=== PATIENT | female | born 1955 | race Caucasian/White ===

== ENCOUNTER 2024-11-21 10:02 | Outpatient (AMB) | payer MEDICARE, SELFPAY ==
--- NOTE | 2024-11-21 10:08 | MHC.OFFVIS ---
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 Denies any recent trauma, injury or falls. Back pain has been long standing issues for her which she attributes to disc generation, severe osteoarthritis, weight gain and age. She has been under the care of Dr. Smith at [facility] who recently relocated further away. She was receiving multiple injections since 2019. Patient is here today to establish pain management care with our office and discuss interventions for axial low back pain and spinal stenosis related pain. She was [place]. Ari[place] [facility] spine MRI in July and was deemed non-surgical at that time and was recommended to trial an injection. Patient is currently in formal physical therapy and regular home exercise program with partial improvement and increased pain with movements or exercises. Back pain is axial and also radiates into bilateral lower extremities posteriorly and into her feet. She has intermittent radicular pain episodes into her lateral hip and anterior thigh. She completed L5-S1 SAE on 12/22/23 with 70% pain relief, 50% pain relief for 3 months with previous SAE injections and lumbar facet MBBs on 04/05/24 which results in 90% pain relief for 6 hours. She is interested to repeat diagnostic lumbar medial branch blocks for potential RFA procedure and undergo Caudal SAE injection for lumbar spinal stenosis related pain. Denies any fever or chills, abdominal or groin pain, bladder or bowel dysfunction or saddle anesthesia. Location: Lower back radiates down bilateral legs in L5-S1 Duration: Chronic pain for many years, most significant past 4 years Characteristics of symptom or complaint: Stabbing, tingling, pulsing, throbbing, radiating, shooting, pinching Aggravating or associated factors: Cold weather, movements, walking, standing, changing positions Relieving factors: Heat, rest, NSAIDs, duloxetine, gabapentin, Vicodin, cyclobenzaprine Treatment: PT, massage, chiropractor, injections, TENS unit [facility] Medical History (Updated 11/23/24 @ 16:22 by JENNY Cleary) Spinal stenosis, lumbar region with neurogenic claudication Lumbar degenerative disc disease Lumbosacral spondylosis Cervical radiculopathy PTSD (post-traumatic stress disorder) Hypercholesterolemia COPD (chronic obstructive pulmonary disease) Chronic urticaria Chronically dry eyes GERD (gastroesophageal reflux disease) Osteoarthritis of lumbosacral spine with radiculopathy Surgical History (Updated 11/23/24 @ 16:06 by JENNY Cleary) History of total bilateral knee replacement Review of Systems Const All systems reviewed & are unremarkable except as noted in HPI and below Physical Exam Vital Signs: Last Vital Signs Pulse 95 11/21/24 10:16 BP 146/68 H 11/21/24 10:16 Pulse Ox 98 11/21/24 10:16 Oxygen Delivery Method Room Air 11/21/24 10:16 BMI result Body Mass Index 42.2 General: Appears afebrile. Alert and oriented. Mood and affect appropriate. Follows and participates in conversation appropriately. Respiratory effort is unlabored. No cough. Able to transition from sit to stand unassisted. Ambulates with slow, antalgic gait. Uses walking sticks or cane with ambulation. General: Yes no CVA tenderness Back/Spine/Pelvis Other: Limited lumbar ROM due to pain. Lumbar extension, axial rotations and flexon reproduce moderate pain. Demonstrates 5/5 left and 4/5 right strength of quadriceps bilaterally as well as flexion/dorsiflexion of bilateral feet against resistance. 2+ pedal pulses bilaterally. Straight leg rise with dorsiflexion positive bilaterally. Diminished patellar and achilles reflexes bilaterally. Facet loading test positive bilaterally. Federica sign is positive bilaterally, Darek?s and Stinchfield tests reproduce lateral hip but not low back pain. No groin pain with I/E hip rotations. Valsalva maneuver is negative. Back: no CVA tenderness Cervical Spine: loss of normal cervical lordosis, cervical muscular tenderness, pain with cervical ROM and No Cervical spine tenderness Thoracic/Lumbar Spine: thoracic and lumbar spine normal to inspection, No Thoracic/lumbar spine scar(s), Lasegue's sign positive bilateral and localized, No thoracic spinal tenderness and lumbar spinal tenderness (L4-S1) Pelvis: buttock tenderness bilaterally and sciatic notch tenderness bilateral Sacroiliac joints: bilaterally tender to palpation Extrem General: Yes capillary refill normal, Yes no clubbing, cyanosis or edema and Yes no calf tenderness Results Reviewed Results Reviewed: Assessment & Plan Assessment & Plan (1) Lumbosacral spondylosis: Code(s): M47.817 - Spondylosis without myelopathy or radiculopathy, lumbosacral region Category: Medical (2) Spinal stenosis, lumbar region with neurogenic claudication: Code(s): M48.062 - Spinal stenosis, lumbar region with neurogenic claudication Category: Medical (3) Lumbar degenerative disc disease: Code(s): M51.369 - Other intervertebral disc degeneration, lumbar region without mention of lumbar back pain or lower extremity pain Category: Medical (4) Chronic pain syndrome: Code(s): G89.4 - Chronic pain syndrome Category: Medical Plan Discussed interventional treatments for axial low back pain and lumbar spinal stenosis and radicular pain, including diagnostic and therapeutic injections, neuromodulation with SCS vs ITDD trial vs implant, Sprint PNS trial, RFA procedures. Informational pamphlets were provided to patient. Schedule Caudal SAE with catheter with local and fluoroscopy for spinal stenosis related pain. For chronic axial low back pain, we will proceed with Bilateral Diagnostic L3-L4 DR L5 MBB with local and fluoroscopy for potential RFA procedure. Expectations, risks and benefits were reviewed. Patient is aware she will be contacted to schedule this procedure. All questions were answered and the patient is in agreement of plan. Follow-up after injections and sooner as needed. Coding Level of Care Code New Pt Level 4 (77598) Complex EM visit Add On G2211 Diagnoses Lumbosacral spondylosis M47.817 Spinal stenosis, lumbar region with neurogenic claudication M48.062 Lumbar degenerative disc disease M51.369 Chronic pain syndrome G89.4
[2024-11-21 10:16] VITALS: BP 146/68; PULSE 95; O2SAT 98; BMI 42.2
== END 2024-11-21 10:54 | disposition home or self-care (01) ==
PROVIDERS: PCP Family Medicine; Referring Provider Family Medicine; Visit Provider Nurse Practitioner Family
DX: M47.817 Spondylosis without myelopathy or radiculopathy, lumbosacral region (principal); M48.062 Spinal stenosis, lumbar region with neurogenic claudication; M51.369 Other intervertebral disc degeneration, lumbar region without mention of lumbar back pain or lower extremity pain; G89.4 Chronic pain syndrome
CPT/HCPCS: 99204; G2211

== ENCOUNTER → 2024-11-21 10:02 | Outpatient (BNVA) | payer MEDICARE, SELFPAY | PROVIDERS: PCP Family Medicine; Referring Provider Family Medicine; Visit Provider Nurse Practitioner Family | DX: M47.817 Spondylosis without myelopathy or radiculopathy, lumbosacral region (principal); M48.062 Spinal stenosis, lumbar region with neurogenic claudication; M51.369 Other intervertebral disc degeneration, lumbar region without mention of lumbar back pain or lower extremity pain; G89.4 Chronic pain syndrome | CPT/HCPCS: 99202 ==

== ENCOUNTER 2024-12-07 08:59 | Outpatient (REF) | payer MEDICARE, SELFPAY ==
--- NOTE | ~2024-12-07 | FL_ITS ---
EXAMINATION: FL GUIDANCE ONLY HISTORY: M48.062 - Spinal stenosis, lumbar region with neurogenic claudication COMPARISON: None available. TECHNIQUE: Fluoroscopy time: 0.2 minutes. Cumulative Dose: 5.08 mGy. DAP: 0.0390 uGy-m2 (microgray-meter squared). Images: 3. FINDINGS: Images demonstrate a needle in the sacrum with a small amount of contrast in the region of the sacrum in the midline. FL/FL guidance in treatment room IMPRESSION: Fluoroscopy during procedure. Please see procedure report for additional information. Electronically signed by: Everardo Doan MD 12/11/2024 03:10 PM KALYN
== END 2024-12-07 09:00 | disposition home or self-care (01) ==
LOC: CF 08:59
PROVIDERS: PCP Family Medicine; Visit Provider Internal Medicine
DX: M48.062 Spinal stenosis, lumbar region with neurogenic claudication (principal)
CPT/HCPCS: 62323; J2003; J3301; Q9967

== ENCOUNTER 2024-12-07 11:55 | Outpatient (AMB) | payer MEDICARE, SELFPAY ==
--- NOTE | 2024-12-07 12:11 | A.OFFVIS_ITS ---
Vital Signs 12/07/24 12:15 12/07/24 12:42 BP 142/62 H 143/65 H Blood Pressure Location Lt brachial Lt brachial Position Sitting Sitting Pulse 110 H 97 Pulse Source Pulse Oximeter Pulse Oximeter Pulse Oximetry (%) 95 94 Oxygen Delivery Method Room Air Room Air Intake Visit Reasons: Caudal SAE Allergies No Known Allergies Allergy (Verified 11/21/24 10:15) HPI HPI Caudal SAE: Details: Patient presents for scheduled procedure. Denies any recent cough, cold, infection, fever or other significant changes in medical history since last office visit. FOR[facility]LY [facility], [facility] Medical History (Updated 12/07/24 @ 12:44 by Lucien Morrison MD) Spinal stenosis, lumbar region with neurogenic claudication Lumbar degenerative disc disease Lumbosacral spondylosis Cervical radiculopathy PTSD (post-traumatic stress disorder) Hypercholesterolemia COPD (chronic obstructive pulmonary disease) Chronic urticaria Chronically dry eyes GERD (gastroesophageal reflux disease) Osteoarthritis of lumbosacral spine with radiculopathy Surgical History (Updated 11/23/24 @ 16:06 by JENNY Cleary) History of total bilateral knee replacement Physical Exam Vital Signs: Last Vital Signs Pulse 97 12/07/24 12:42 BP 143/65 H 12/07/24 12:42 Pulse Ox 94 12/07/24 12:42 Oxygen Delivery Method Room Air 12/07/24 12:42 Office Procedures AMB Joint Injection/Aspiration Joint Injection/Aspiration Details: Caudal SAE with catheter After obtaining written consent, pre-procedure blood pressure and pulse were measured. Standard monitors were applied. The patient was placed in the prone position. The lumbosacral area was widely prepped with chloraprep and draped in sterile fashion. The skin overlying the target was anesthetized with 0.5% lidocaine. A 17 G needle was used to access the caudal epidural space using anatomic landmarks and x-ray guidance. We then threaded a catheter up to the L5/S1 level and injected contrast 1cc omnipaque 180 for verification of epidural spread. Following negative aspiration of heme or CSF, 10 mL of normal saline followed by mixture of 5 ml 0.5% lidocaine with 80 mg triamcinolone was injected with minimal pressure into the epidural space. The needle was removed, skin cleansed and a sterile bandage was applied. The patient tolerated the procedure well and no complications were encountered. Following the procedure the patient's vital signs were stable. The patient was discharged home in good condition with post-procedural instructions. Time Out: Immediately prior to the procedure, the following was verbally confirmed that there is a signed consent form and that the correct patient, planned procedure, site and side are consistent with documentation and that necessary equipment and/or blood products are available prior to the start of the case. Complications: none EBL: <5 cc Coding 20297 - Caudal/Lumbar Epidural/Interlaminar with fluoroscopy Procedure code (CPT) selection complete Assessment & Plan Assessment & Plan (1) Lumbar radicular pain: Code(s): M54.16 - Radiculopathy, lumbar region Category: Medical Plan Patient is status post caudal epidural steroid injection with catheter. Patient tolerated procedure well and was discharged home in stable condition with discharge instructions. All questions were answered. We will follow-up in office to review her MRI and assess response to this injection prior to planning any further procedures. Orders: Orders FL guidance in treatment room Today M48.062 - Spinal stenosis, lumbar region with neurogenic claudication Coding Level of Care Code Procedure Only Diagnoses Lumbar radicular pain M54.16 CPT Codes Coding - Joint 11: 83215 - Caudal/Lumbar Epidural/Interlaminar with fluoroscopy ([id number])
[2024-12-07 12:15] VITALS: BP 142/62; PULSE 110; O2SAT 95
[2024-12-07 12:42] VITALS: BP 143/65; PULSE 97; O2SAT 94
== END 2024-12-07 12:43 | disposition home or self-care (01) ==
LOC: HO.PMCPRC 11:55
PROVIDERS: PCP Family Medicine; Visit Provider Internal Medicine
DX: M54.16 Radiculopathy, lumbar region (principal)
CPT/HCPCS: 62323

== ENCOUNTER 2025-01-04 10:07 | Outpatient (AMB) | payer MEDICARE, SELFPAY ==
--- NOTE | 2025-01-04 10:09 | MHC.OFFVIS ---
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 Morrison. Patient reports 65% pain relief since injection with partial improvement in her back and good relief for right leg pain but not left leg pain. She also reports some improvement with daily functioning, movements, sleep and social interactions. She continues to participate in formal physical therapy and reports she is able to do more exercises since injection and when taking cyclobenzaprine. Her concerns remains lower back pain with radiation into her left leg in L5 distribution with positive SLR testing and neurogenic claudication. She was recently seen by Dr. Arias per patient and states she was told patient could benefit from minimally invasive decompression to relieve her symptoms. Patient reports Dr. Arias does not offer minimally invasive decompression and she is interested to see our colleagues at [facility]. We will also proceed with diagnostic lumbar medial branch blocks for RFA as this has provided her significant axial LBP relief in the past. Denies any recent cough, cold, infection, fever, bladder or bowel dysfunction, saddle anesthesia or any significant changes in medical history since last office visit. Past Procedures: 12/07/24: Caudal SAE with catheter-65% ongoing pain relief PRIOR: Patient is a pleasant 69 years old female with history of chronic low back pain, cervical radiculopathy, lumbosacral spondylosis with radiculopathy, lumbar spinal stenosis with progressive neurogenic claudication and lower extremities weakness, h/o bilateral TKA, COPD, PTSD presents today for initial evaluation of low back pain with radiculopathy. Denies any recent trauma, injury or falls. Back pain has been long standing issues for her which she attributes to disc generation, severe osteoarthritis, weight gain and age. She has been under the care of Dr. Smith at [facility] who recently relocated further away. She was receiving multiple injections since 2019. Patient is here today to establish pain management care with our office and discuss interventions for axial low back pain and spinal stenosis related pain. She was seen by Dr. Arias at [facility] [place] after completing lumbar spine MRI in July and was deemed non-surgical at that time and was recommended to trial an injection. Patient is currently in formal physical therapy and regular home exercise program with partial improvement and increased pain with movements or exercises. Back pain is axial and also radiates into bilateral lower extremities posteriorly and into her feet. She has intermittent radicular pain episodes into her lateral hip and anterior thigh. She completed L5-S1 SAE on 12/22/23 with 70% pain relief, 50% pain relief for 3 months with previous SAE injections and lumbar facet MBBs on 04/05/24 which results in 90% pain relief for 6 hours. She is interested to repeat diagnostic lumbar medial branch blocks for potential RFA procedure and undergo Caudal SAE injection for lumbar spinal stenosis related pain. Denies any fever or chills, abdominal or groin pain, bladder or bowel dysfunction or saddle anesthesia. Location: Lower back radiates down bilateral legs in L5-S1 Duration: Chronic pain for many years, most significant past 4 years Characteristics of symptom or complaint: Stabbing, tingling, pulsing, throbbing, radiating, shooting, pinching Aggravating or associated factors: Cold weather, movements, walking, standing, changing positions Relieving factors: Heat, rest, NSAIDs, duloxetine, gabapentin, Vicodin, cyclobenzaprine Treatment: PT, massage, chiropractor, injections, TENS unit ON LICENSE OF [facility] Medical History Spinal stenosis, lumbar region with neurogenic claudication Lumbar degenerative disc disease Lumbosacral spondylosis Cervical radiculopathy PTSD (post-traumatic stress disorder) Hypercholesterolemia COPD (chronic obstructive pulmonary disease) Chronic urticaria Chronically dry eyes GERD (gastroesophageal reflux disease) Osteoarthritis of lumbosacral spine with radiculopathy Surgical History History of total bilateral knee replacement Review of Systems Const All systems reviewed & are unremarkable except as noted in HPI and below Physical Exam Vital Signs: Last Vital Signs Pulse 109 H 01/04/25 10:13 BP 176/77 H 01/04/25 10:13 Pulse Ox 98 01/04/25 10:13 Oxygen Delivery Method Room Air 01/04/25 10:13 General: Appears afebrile. Alert and oriented. Mood and affect appropriate. Follows and participates in conversation appropriately. Respiratory effort is unlabored. No cough. Able to transition from sit to stand unassisted. Ambulates with slow, antalgic gait. Uses cane with ambulation at home. General: Yes no CVA tenderness Back/Spine/Pelvis Other: Limited lumbar ROM due to pain. Lumbar extension, axial rotations and flexon reproduce moderate pain. Demonstrates 4/5 left and 5/5 right strength of quadriceps bilaterally as well as flexion/dorsiflexion of bilateral feet against resistance. 2+ pedal pulses bilaterally. Straight leg rise with dorsiflexion positive bilaterally, worse on the left in L5 distribution. Diminished patellar and achilles reflexes bilaterally. Facet loading test positive bilaterally. Federica sign is positive bilaterally, Darek?s and Stinchfield tests reproduce lateral hip but not low back pain. No groin pain with I/E hip rotations. Valsalva maneuver is positive. Back: no CVA tenderness Cervical Spine: loss of normal cervical lordosis, cervical muscular tenderness, pain with cervical ROM, No Cervical spine tenderness and No step off deformity Thoracic/Lumbar Spine: thoracic and lumbar spine normal to inspection, No Thoracic/lumbar spine scar(s), Lasegue's sign positive bilateral, diffuse (right) and localized (L5 on the left), No thoracic spinal tenderness and lumbar spinal tenderness (L4-S1) Pelvis: buttock tenderness on the left and sciatic notch tenderness on the left Sacroiliac joints: bilaterally tender to palpation Extrem General: Yes capillary refill normal, Yes no clubbing, cyanosis or edema and Yes no calf tenderness Results Reviewed Results Reviewed: [facility] [place] 08/03/24 Assessment & Plan Assessment & Plan (1) Lumbosacral spondylosis: Code(s): M47.817 - Spondylosis without myelopathy or radiculopathy, lumbosacral region Category: Medical (2) Spinal stenosis, lumbar region with neurogenic claudication: Code(s): M48.062 - Spinal stenosis, lumbar region with neurogenic claudication Category: Medical (3) Lumbar degenerative disc disease: Code(s): M51.369 - Other intervertebral disc degeneration, lumbar region without mention of lumbar back pain or lower extremity pain Category: Medical (4) Chronic pain syndrome: Code(s): G89.4 - Chronic pain syndrome Category: Medical Plan Patient is one month status post Caudal SAE injection with 65% pain relief for right leg and partial low back pain but continues to reports significant left leg pain in L5 distribution with walking and climbing stairs. She denies any knee pain and has history of prior bilateral TKAs. Patient is interested to proceed with [facility] for second opinion for potential lumbar decompression. Patient brought MRI disc with imaging. Report is noted above. Previously discussed interventional treatments for axial low back pain and lumbar spinal stenosis and radicular pain, including diagnostic and therapeutic injections, neuromodulation with SCS vs ITDD trial vs implant, Sprint PNS trial, RFA procedures. For chronic axial low back pain, we will proceed with Bilateral Diagnostic L3-L4 DR L5 MBB with local and fluoroscopy for potential RFA procedure. Expectations, risks and benefits were reviewed. Patient is aware she will be contacted to schedule this procedure. All questions were answered and the patient is in agreement of plan. Follow-up after injections and sooner as needed. Orders: Referrals Neuro Spine Referral M48.062 - Spinal stenosis, lumbar region with neurogenic claudication Coding Level of Care Code Est Pt Level 4 (79525) Complex EM visit Add On G2211 Diagnoses Lumbosacral spondylosis M47.817 Spinal stenosis, lumbar region with neurogenic claudication M48.062 Lumbar degenerative disc disease M51.369 Chronic pain syndrome G89.4
[2025-01-04 10:13] VITALS: BP 176/77; PULSE 109; O2SAT 98
--- OUTSIDE RECORDS SUMMARY | 2025-01-04 10:50 | XMS_ITS | Data Portability ---
Author Organization [facility], OFFICE Address [address], [facility] [address] [place] [address] Assessment Encounter Date Assessment Date Assessment LastModified by Organization Details LastModified Time 08/30/2015 08/30/2015 Janna is doing exceedingly well following elective THR. ? ? ?Unfortunately she is having progressive right knee problems. ? ? ?We don't have radiographs but she has obvious bony crepitus in the PFJ on exam. ? ? ?She will clearly benefit from TKR at some point in the future. ? ? ?We'll determine further treatment based on her clinical progress. sbm Not available 08/30/2015 15:52:13 06/29/2016 06/29/2016 Janna is coming along well following RTKR considering that her surgery was less than a month ago. We are going to transition to OP PT and begin the use of a stationary bike. She's going to continue to progress motion, strength, and weight bearing as tolerated. sbm Not available 06/29/2016 17:36:48 09/21/2016 09/21/2016 She's progressin g well after elective RTKR. We plan to continue progression of motion, strength, weight bearing, and reasonable activities as tolerated. sbm Not available 09/21/2016 11:20:56 09/08/2017 09/08/2017 We discussed the options related to her treatment. Clearly, left total knee arthroplasty would be a reasonable treatment alternative for her in the future. Anticipating that, we discussed the issues related to that in a lot of detail today including the preoperative process, the operative techniques, less-invasive techniques, computer-assisted techniques, the types of implants, and the perioperative risks. In addition, we discussed the typical hospitalization course following surgery and reasonable expectations for recovery, outcome, activity level, and long-term followup. We'll determine further treatment based on her progress. sbm Not available 09/08/2017 12:34:06 06/22/2018 06/22/2018 Janna has been recovering well following elective LTKR. She's going to progress her motion, strength, and activities as tolerated. sbm Not available 06/22/2018 11:14:00 Plan of Treatment Reminders Order Date Submit Date Provider Last Modified By Organization Details Last Modified Time Details Appointments None record ed. Lab None record ed. Referral None record ed. Procedures None record ed. Surgeries None record ed. Imaging None record ed. Medication Orders None record ed. Patient TargetsNo targets recorded. Patient InstructionsNo instructions recorded. Reason for Referral None Reported. Problems Name Problem SNOMED Code Status Onset Date Resolution Date Notes Provider Name and Address Organization Details Recorded Time Osteoarthritis of knee [id number] Active Derian Alfonso MD [address], [place], [address], [place] - [facility] 5 15:52:14 Localized, primary osteoarthritis of the pelvic region and thigh [id number] Active Derian Alfonso MD [address], [place], [address], [place] - [facility] 4 15:56:34 Problem Notes None recorded. Procedures Surgical History Date Name Laterality Status Provider Name and Address Organization Details Recorded Time 6 Knee Surgery completed Derian Alfonso MD [address], [place], [address], [place] - [facility] 06/29/2016 17:30:17 4 Hip Surgery completed Derian Alfonso MD [address], [place], [address], [place] - [facility] 11/12/2014 15:54:45 Knee Surgery completed Derian Alfonso MD [address], [place], [address], [place] - [facility] 06/22/2018 11:12:36 General Surgery completed Derian Alfonso MD [address], [place], [address], [place] - [facility] 08/22/2014 15:24:13 Imaging Results None recorded. Procedure Notes None recorded. Medical Equipment None Reported. Allergies Allergen ID Allergen Name Allergen Category Reaction Reaction Severity Criticality Documentation Date Start Date Code Code System Note Provider Name and Address Organization Details Recorded Time 1081 shellfish derived food,medi cation Not available Not available Not available 08/22/2014 67508 UNK Derian Alfonso MD [address], [place], [address], [place] - [facility] 4 15:24:13 Medications Name Sig Start Date Stop Date Status Note LastModified by Organization Details LastModified Time celecoxib 200 mg capsule Pre op: Take 2 tablets po the night before surgery and 1 tablet po the morning of surgery. Post op: One po qd active Not Available Not Available No t Available amoxicillin 500 mg capsule TAKE 4 CAPSULES 1 HOUR PRIOR TO DENTAL WORK active Not Available Not Available No t Available desonide 0.05 % topical cream APPLY TO AFFECTED AREA TOPICALLY EVERY DAY active Not Available Not Available No t Available prednisone 10 mg tablet 09/08 completed Not Available Not Available Not Available atorvastati n 20 mg tablet TAKE 1 TABLET BY MOUTH EVERY DAY active Not Available Not Available No t Available Mephyton 5 mg tablet active Not Available Not Available No t Available azithromyci n 250 mg tablet active Not Available Not Available Not Available valacyclovi r 1 gram tablet TAKE 2 TABLETS (2,000 MG TOTAL) BY MOUTH 2 (TWO) TIMES A DAY FOR 1 DAY. active Not Available Not Available No t Available hydrocodone 5 mg-acetamin ophen 325 mg tablet TAKE 1-2 TABLETS BY MOUTH EVERY 4-6 HOURS NEEDED active Not Available Not Available No t Available prednisone 20 mg tablet 09/08 completed Not Available Not Available Not Available clonazepam 0.5 mg tablet TAKE 1 TABLET BY MOUTH EVERY DAY active Not Available Not Available No t Available topiramate 25 mg tablet TAKE 1 TABLET BY MOUTH THREE TIMES A DAY active Not Available Not Available No t Available prochlorper azine maleate 10 mg tablet active Not Available Not Available No t Available hydromorpho ne 2 mg tablet Take 1-2 tablet(s) EVERY 4-6 HOURS by oral route. active Not Available Not Available No t Available estradiol 0.025 mg/24 hr weekly transdermal patch active Not Available Not Available Not Available desonide 0.05 % topical ointment active Not Available Not Available Not Available pantoprazol e 40 mg tablet,fadumo yed release TAKE 1 TABLET BY MOUTH EVERY DAY active Not Available Not Available No t Available prednisone 50 mg tablet 09/08 completed Not Available Not Available Not Available oxycodone 5 mg capsule Take 1-2 capsule(s ) EVERY 4- 6 HOURS by oral route. 2015 active Not Available Not Available Not Avai lable hydrocodone -homatropin e 5 mg-1.5 mg/5 mL oral syrup active Not Available Not Available N ot Available montelukast 10 mg tablet active Not Available Not Available Not Available mupirocin 2 % topical ointment APPLY SMALL AMOUNT TO AFFECTED AREA OF LOWER LIP 3 TIMES DAILY FOR NO MORE THAN ONE WEEK. active Not Available Not Available No t Available warfarin 1 mg tablet Pre op: Starting 7 days prior to surgery take 1 tablet po nightly, Post op: Take as directed, up to 10 tablets, nightly po. active Not Available Not Available No t Available diazepam 10 mg tablet TAKE 1 TABLET BY MOUTH 1 HR BEFORE PROCEDURE active Not Available Not Available No t Available epinephrine 0.3 mg/0.3 mL injection, auto-inject or active Not Available Not Available Not Available albuterol sulfate HFA 90 mcg/actuati on aerosol inhaler active Not Available Not Available Not Available prazosin 2 mg capsule TAKE 1 TABLET BY MOUTH AT BEDTIME NEEDED FOR INSOMNIA active Not Available Not Available No t Available progesteron e micronized 100 mg capsule active Not Available Not Available Not Available amoxicillin 875 mg-potassiu m clavulanate 125 mg tablet TAKE 1 TABLET BY MOUTH TWICE A DAY FOR 10 DAYS active Not Available Not Available No t Available oxycodone 5 mg tablet Take 1-2 tablet(s) EVERY 4-6 HOURS by oral route. active Not Available Not Available No t Available cyclosporin e 0.05 % eye drops in a dropperette active Not Available Not Available Not Available clonazepam 0.125 mg disintegrat ing tablet active Not Available Not Available N ot Available clonazepam 0.5 mg disintegrat ing tablet active Not Available Not Available N ot Available Flovent HFA 110 mcg/actuati on aerosol inhaler active Not Available Not Available Not Available chlorhexidi ne gluconate 0.12 % mouthwash active Not Available Not Available No t Available ibuprofen active Not Available Not Ml ilable Not Available Claritin active Not Available Not Avai lable Not Available Tylenol active Not Available Not Avail able Not Available peg 3350-electr olytes 236 gram-22.74 gram-6.74 gram-5.86 gram solution active Not Available Not Available Not Available Stiolto Respimat 2.5 mcg-2.5 mcg/actuati on solution for inhalation active Not Available Not Available N ot Available COVID-19 At-Home Test kit TEST active Not Available Not Available Not Available Vitals Date Recorded Body height Body mass index (BMI) Body weight Provider Name and Address Organization Details Last Updated DateTime 08/30/2015 167.64 cm 29.9 kg/m2 36969.92520 g Violette Wilson [place] - [facility] 08/30/2015 14:48:54 Date Recorded Systolic blood pressure Diastolic blood pressure Provider Name and Address Organization Details Last Updated DateTime 08/30/2015 115 mm[Hg] 80 mm[Hg] Derian Alfonso MD [address] [facility] [address], [place], [address], [place] - [facility] 08/30/2015 15:22:18 Date Recorded Body height Body weight Body mass index (BMI) Provider Name and Address Organization Details Last Updated DateTime 06/29/2016 167.64 cm 55631.55 g 30.7 kg/m2 Violette Wilson [place] - [facility] 06/29/2016 16:38:49 Date Recorded Systolic blood pressure Diastolic blood pressure Provider Name and Address Organization Details Last Updated DateTime 06/29/2016 131 mm[Hg] 89 mm[Hg] Derian Alfonso MD [address] [facility] [address], [place], [address], [place] - [facility] 06/29/2016 16:55:17 Date Recorded Body height Body weight Body mass index (BMI) Provider Name and Address Organization Details Last Updated DateTime 09/21/2016 167.64 cm 02187.92 g 31.3 kg/m2 Violette Wilson [place] - [facility] 09/21/2016 09:28:58 Date Recorded Body height Body mass index (BMI) Body weight Systolic blood pressure Diastolic blood pressure Provider Name and Address Organization Details Last Updated DateTime 09/08/2017 167.64 cm 29.9 kg/m2 09792.59 g 116 mm[Hg] 81 mm[Hg] Violette Wilson [place] - [facility] 7 12:13:09 Date Recorded Body height Body mass index (BMI) Body weight Systolic blood pressure Diastolic blood pressure Provider Name and Address Organization Details Last Updated DateTime 06/22/2018 167.64 cm 31.5 kg/m2 39416.51 g 126 mm[Hg] 83 mm[Hg] Violette Wilson [place] - [facility] 8 10:40:56 Social History Question Answer Notes LastModified by Organizat ion Details LastModified Time Tobacco Smoking Status Former Smoker Derian Alfonso MD [address], [place], [address] [place] - [facility] 08/22/2014 15:24:13 What Was The Date Of Your Most Recent Tobacco Screening? 06/22/2018 Information n ot available 06/15/2019 Sex: Unknown Functional Status None recorded. Mental Status None recorded. Family History Nothing Reported. Medical History Condition Response Coronary Artery Disease N Heart Problems N Gout N Anxiety/Depression N Blood Transfusion N Hernia N Migraines N Thyroid Problems N COPD N Pacemaker N Anemia N Heart Attack ([place]) N Ulcers N Diabetes N Bleeding Disorder N Orthotics N Arthritis N Seizures/Epilepsy N Blood Clot N Tuberculosis N AIDS/HIV N Cancer N Stroke N Asthma N Peripheral Vascular Disease N High Cholesterol N Hepatitis N Liver Disease N Rheumatoid Arthritis N Pulmonary Embolism N Hypertension N Osteoporosis N Kidney Disease N Gynecological HistoryNo gynecological history recorded. Obstetrics History GPAL:G 0 P 0 0 0 0 Past Encounters Encounter ID Performer Location Encounter Start Date Encounter Closed Date Diagnosis/Indication Diagnosis SNOMED-CT Code Diagnosis ICD10 Code Diagnosis Note [id number] Derian Alfonso MD OFFICE [address], [address] [place] [address] 08/22/2014 13:35:34 08/22/2014 15:38:18 [id number] Adelita Osmin OFFICE [address], [place], [place] [address] 11/12/2014 14:03:19 11/12/2014 16:00:30 [id number] OFFICE [address], [place], [place] [address] 08/30/2015 14:19:45 08/30/2015 16:43:02 [id number] Derian Alfonso MD OFFICE [address], [place], [place] [address] 06/29/2016 16:10:59 06/29/2016 18:05:52 [id number] Derian Alfonso MD OFFICE [address], [place] [address] 09/21/2016 09:28:13 09/23/2016 09:23:06 [id number] Derian Alfonso MD OFFICE [address], [place] [address] 09/08/2017 10:52:10 09/10/2017 14:27:28 [id number] Derian Alfonso MD OFFICE [address], [place] [address] 06/22/2018 09:38:46 06/23/2018 16:03:44 Health Concerns Section Related Observation LastModified by Organization Detai ls LastModified Time None Recorded Concern Status LastModified by Organization Details LastModified Time None Recorded Advance Directives Directive None Recorded Payers Encounter Date Sequence Insurance Name Policy Number Policy Bruno Covered Member ID Bruno Member ID Guarantor Name 08/30/2015 1 [place] [id number] Lawrence Toledo [id number] 06/29/2016 1 [place] [id number] Lawrence Toledo [id number] 09/21/2016 1 [place] [id number] Lawrence Toledo [id number] 09/08/2017 1 [place] [id number] Lawrence Toledo [id number] [facility] 06/22/2018 1 [place] [id number] Lawrence Toledo [id number] Notes Date Note Type Note Provider Name and Address Organization Details Recorded Time 06/29/2016 text/html KneeReported bypatient.Location: right Severity:mild Alleviating Factors:ice; rest; stretching Aggravating Factors:exercise Prior Imaging:x ray Previous PT:helped significantly Derian Alfonso MD [address], [place], [address], [place] - [facility] 06/29/2016 17:37:30 09/21/2016 text/html KneeReported bypatient.Location: right Severity:mild Alleviating Factors:rest; stretching Aggravating Factors:standing; exercise Prior Imaging:x ray Previous PT:helped significantly Derian Alfonso MD [address], [place], [address], [place] - [facility] 09/21/2016 11:22:33 09/08/2017 text/html KneeReported bypatient.Location: left; anterior Quality:worsening Severity:moderate Alleviating Factors:rest Aggravating Factors:going from sit to stand; upstairs; downstairs; PF stressing activities. Associated Symptoms:no weakness; no numbness; no tingling; no swelling; no redness; no warmth; no ecchymosis; no catching/locking; no popping/clicking; no buckling; no grinding; no instability; no radiation down leg; no drainage; no fever; no chills; no weight loss; no change in bowel/bladder habits Prior Imaging:x ray Previous PT:did not help Derian Alfonso MD [address], [place], [address], [place] - [facility] 09/08/2017 12:34:21 06/22/2018 text/html KneeReported bypatient.Location: left; medial Severity:slight Alleviating Factors:rest Aggravating Factors:exercise Associated Symptoms:no weakness; no numbness; no tingling; no swelling; no redness; no warmth; no ecchymosis; no catching/locking; no popping/clicking; no buckling; no grinding; no instability; no radiation down leg; no drainage; no fever; no chills; no weight loss; no change in bowel/bladder habits Prior Imaging:x ray; MRI Previous PT:helped significantly Derian Alfonso MD [address] [place] [address],[facility] [address], [place], [address], [place] - [facility] 06/22/2018 11:14:04 OBGyn Episode No OBEpisode recorded.
== END 2025-01-04 10:41 | disposition home or self-care (01) ==
PROVIDERS: PCP Family Medicine; Visit Provider Nurse Practitioner Family
DX: M47.817 Spondylosis without myelopathy or radiculopathy, lumbosacral region (principal); M48.062 Spinal stenosis, lumbar region with neurogenic claudication; M51.369 Other intervertebral disc degeneration, lumbar region without mention of lumbar back pain or lower extremity pain; G89.4 Chronic pain syndrome
CPT/HCPCS: 99214; G2211

== ENCOUNTER → 2025-01-04 10:07 | Outpatient (BNVA) | payer MEDICARE, SELFPAY | PROVIDERS: PCP Family Medicine; Visit Provider Nurse Practitioner Family | DX: M47.817 Spondylosis without myelopathy or radiculopathy, lumbosacral region (principal); M48.062 Spinal stenosis, lumbar region with neurogenic claudication; M51.369 Other intervertebral disc degeneration, lumbar region without mention of lumbar back pain or lower extremity pain; G89.4 Chronic pain syndrome | CPT/HCPCS: 99212 ==

== ENCOUNTER 2025-01-15 10:31 | Outpatient (REF) | payer MEDICARE, SELFPAY ==
--- NOTE | ~2025-01-15 | XR_ITS ---
EXAMINATION: X-ray lumbar spine 4 views. CLINICAL INFORMATION: Radiculopathy, lumbar region. COMPARISON: No priors. TECHNIQUE: 4 views of the lumbar spine including flexion and extension position. FINDINGS: Multilevel endplate sclerosis marginal osteophyte formation and decreased intervertebral disc height involving the lower thoracic and lower lumbar spine. S-shaped curvature of the thoracolumbar spine. Facet joint hypertrophy at L4-5 and L5-S1. Grade 1 anterolisthesis L3-4 in neutral position which maintains during flexion and extension. Spina bifida occulta S1. No acute cortical disruption. No lytic or blastic lesions. XR/XR lumbar spine 4V min IMPRESSION: Multilevel thoracolumbar spondylosis and mild scoliosis. Grade 1 anterolisthesis L3-4 without instability. Electronically signed by: Marino Pagan MD 01/16/2025 12:28 PM [facility] BARFIELD
== END 2025-01-15 10:32 | disposition home or self-care (01) ==
LOC: HO.HOSX 10:31
PROVIDERS: PCP Family Medicine; Referring Provider Nurse Practitioner Family; Visit Provider Physician Assistant
DX: M54.16 Radiculopathy, lumbar region (principal); M48.061 Spinal stenosis, lumbar region without neurogenic claudication
CPT/HCPCS: 72110; 99202

== ENCOUNTER 2025-01-15 10:31 | Outpatient (AMB) | payer MEDICARE, SELFPAY ==
--- NOTE | 2025-01-15 10:43 | HO.SPINEOV ---
Vital Signs 01/15/25 10:47 Height 5 ft 4.5 in Weight 255 lb BMI 43.1 Intake Visit Reasons: spinal stenosis, lumbar region Intake Note: Ms. James is here today c/o low back pain that radiates down to the legs. 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 She is a very nice 69-year-old female presents to the office today for evaluation of chronic low back pain and bilateral lower extremity pain that has been present for many decades. She can remember having the pain going as far back as when she was a teenager. She describes her pain in her low back is encompassing the whole low back. She has pain that goes down her right leg into her buttock, outer thigh, calf and into the top of her foot. On the left side it goes down her left buttock into her left lateral thigh toward her lateral knee. The pain can be variable depending on walking and standing and sitting and lying down. The pain on the left side is particularly worse with walking and standing as well as the back pain. The pain on the right leg can be present when she is seated and even when she is lying down. She has been through rigorous conservative management including multiple rounds of injections not only in [place] but locally here. More recently had a caudal epidural injection done with your office and that did give her about 60-70% pain relief. She has also been through physical therapy, chiropractic, medication trials including gabapentin, Celebrex and duloxetine. At this point her quality of life is suffering because she is unable to stand and walk. She was referred to by her chiropractor and he told her that he thought she was good candidate for minimally invasive surgery but that he does not do that kind of surgery. She came to see us as a 2nd opinion. PMH: She has a complicated history from the standpoint of various immune reactivity disorders that often are difficult to diagnose and treat. She has had a longstanding issue with urticaria, mast cell mediated that requires her to take high doses of histamine blockers. She has recently started on Xolair and she is hoping she can get off all the other medication she is on for that. History of COPD, obesity, GERD, hiatal hernia, sleep apnea, osteoarthritis. She did have both of her knees replaced and her right hip replaced. After these procedures her pain significantly increased. She had a laparoscopy for endometriosis excision of a benign breast mass. Denies any history of heart attacks, strokes, liver disease, kidney disease, coagulopathies, cancer. Social hx: She has not smoke, drink use any recreational drugs Medications: Lipitor, pantoprazole, cetirizine, duloxetine, gabapentin, Celebrex, prazosin, Klonopin, Xolair, [place] bound, gastroc, and famotidine Allergies: None Physical exam: BMI 43. Awake alert oriented no acute distress she is able stand up out of a chair and walk down the hallway for me, she does appear to have slightly antalgic gait, strength and reflexes are normal. She does have pain in her back with hip flexion. Imaging review: There images from [facility], I was able to pull them up on the computer but do not have a report. It appears to me that she has some baseline degenerative disc disease at multiple levels, moderate stenosis with epidural lipomatosis at L4-5 causing some crowding of the central canal, bilateral foraminal narrowing, primarily on the right I would rate it as moderate, on the left heart rate it as [id number]. Impression: 69-year-old female presents to the office today for evaluation of back pain and bilateral lower extremity pain aggravated with standing and walking. She has had the pain now for decades, got particularly worse after her knee and hip replacements. She has responded beautifully in the past 2 injections but these things have started to wear off. She did have a caudal injection done with your pain management office and that did give her about 60-70% relief of the leg pain. Her MRI shows that she has moderate stenosis at L4-5 and some foraminal narrowing. There is a combination of degenerative disc disease and epidural lipomatosis causing this narrowing. She did see Dr. Arias who thought she would be better suited for minimally invasive approach and she was referred to our office. Dr. Souza does do minimally invasive surgery with lumbar decompression. I will review the films with him to see if he thinks there is enough stenosis that a justify an operation. I will also get a set of standing flexion-extension films as a lot of her symptoms do come on with standing walking. I will call her back once I have a chance to review everything. She would likely need to stop her Xolair ends up bound prior to surgery so I will discuss this with her if he thinks she is a surgical candidate. I did explain to her that the goal of surgery would be to help with the leg pain but not expect much improvement with the back pain. Thank you for allowing us to care for your patient. The total time spent with this visit with this patient was 45 minutes reviewing history, physical exam, lumbar imaging review, and implementation of treatment plan or further diagnostic testing Roel Souza MD,PhD [facility] Orders: Orders XR lumbar spine 4V min Today M54.16 - Radiculopathy, lumbar region Coding Level of Care Code New Pt Level 4 (83560) Diagnoses Lumbar radicular pain M54.16
[2025-01-15 10:47] VITALS: BMI 43.1
--- OUTSIDE RECORDS SUMMARY | 2025-01-15 11:53 | XMS_ITS | Data Portability ---
Author Organization [facility], OFFICE Address [address], [facility] [address] [place] [address] Assessment Encounter Date Assessment Date Assessment LastModified [...] Organization Details Recorded Time Osteoarthritis of knee [id number] Active Derian Alfonso MD [address], [place], [address], [place] - [facility] 5 15:52:14 Localized, primary osteoarthritis of the pelvic region and thigh [id number] Active Derian Alfonso MD [address], [place], [address], [place] - [facility]Assistd and [facility] 4 15:56:34 Problem Notes None recorded. Procedures Surgical History Date Name Laterality Status Provider Name and Address Organization Details Recorded Time 6 Knee Surgery completed Derian Alfonso MD [address], [place], [address], [place] - [facility] and [facility] 06/29/2016 17:30:17 4 Hip Surgery completed Derian Alfonso MD [address], [place], [address], [place] - [facility]Ass[facility]d and [facility] 11/12/2014 15:54:45 Knee Surgery completed Derian Alfonso MD [address], [place], [address], [place] - [facility]d and [facility] 06/22/2018 11:12:36 General Surgery completed Derian Alfonso MD [address], [place], [address], [place] - [facility]d and [facility] 08/22/2014 15:24:13 Imaging Results None recorded. Procedure Notes None recorded. Medical Equipment None Reported. Allergies Allergen ID Allergen Name Allergen Category Reaction Reaction Severity Criticality Documentation Date Start Date Code Code System Note Provider Name and Address Organization Details Recorded Time 1081 shellfish derived food,medi cation Not available Not available Not available 08/22/2014 07011 UNK Derian Alfonso MD [address], [place], [address], [place] - [facility]Ass[facility]d and [facility] 4 [...] Updated DateTime 08/30/2015 167.64 cm 29.9 kg/m2 27909.39605 g Violette Wilson [place] - Comp[facility]Assistd and [facility] S[facility] 08/30/2015 14:48:54 Date Recorded Systolic blood pressure Diastolic blood pressure Provider Name and Address Organization Details Last Updated DateTime 08/30/2015 115 mm[Hg] 80 mm[Hg] Derian Alfonso MD [address] [facility] [address], [place], [address], [place] - [facility]Assistd and [facility]cnstrctive Surg[facility] 08/30/2015 15:22:18 Date Recorded Body height Body weight Body mass index (BMI) Provider Name and Address Organization Details Last Updated DateTime 06/29/2016 167.64 cm 81268.55 g 30.7 kg/m2 Violette Wilson [place] - Comp-Assistd and Rcnstrctive S[facility] 06/29/2016 16:38:49 Date Recorded Systolic blood pressure Diastolic blood pressure Provider Name and Address Organization Details Last Updated DateTime 06/29/2016 131 mm[Hg] 89 mm[Hg] Derian Alfonso MD [address] [facility] [address], [place], [address], [place] - Comp[facility]Assistd and Rcn[facility] S[facility] 06/29/2016 16:55:17 Date Recorded Body height Body weight Body mass index (BMI) Provider Name and Address Organization Details Last Updated DateTime 09/21/2016 167.64 cm 74336.92 g 31.3 kg/m2 Violette Wilson [place] - Comp-Assistd and Rcnstrctive Surg[facility] 09/21/2016 09:28:58 Date Recorded Body height Body mass index (BMI) Body weight Systolic blood pressure Diastolic blood pressure Provider Name and Address Organization Details Last Updated DateTime 09/08/2017 167.64 cm 29.9 kg/m2 30346.59 g 116 mm[Hg] 81 mm[Hg] Violette Wilson [place] - Comp-Assistd and Rcnstrctive Surgry 7 12:13:09 Date Recorded Body height Body mass index (BMI) Body weight Systolic blood pressure Diastolic blood pressure Provider Name and Address Organization Details Last Updated DateTime 06/22/2018 167.64 cm 31.5 kg/m2 20187.51 g 126 mm[Hg] 83 mm[Hg] Violette Wilson [place] - Comp-Assistd and Rcnstrctive Surgry 8 10:40:56 Social History Question Answer Notes LastModified by Organizat ion Details LastModified Time Tobacco Smoking Status Former Smoker Derian Alfonso MD [address], [place], [address] [place] - Comp[facility]Assistd and [facility]cn[facility] Surg[facility] 08/22/2014 15:24:13 What Was The Date Of Your Most Recent Tobacco Screening? 06/22/2018 Information n ot available 06/15/2019 Sex: Unknown Functional Status None recorded. Mental Status None recorded. Family History Nothing Reported. Medical History Condition Response Heart Problems N Coronary Artery Disease N Anxiety/Depression N Gout N Blood Transfusion N Hernia N Migraines N Thyroid Problems N COPD N Pacemaker N Anemia N Ulcers N Heart Attack ([place]) N Diabetes N Bleeding Disorder N Orthotics [...] SNOMED-CT Code Diagnosis ICD10 Code Diagnosis Note [id number] Derian Alfonso MD OFFICE [address], [address] [place] [address] 08/22/2014 13:35:34 08/22/2014 15:38:18 [id number] Adelita Osmin OFFICE [address], [place], [place] [address] 11/12/2014 14:03:19 11/12/2014 16:00:30 [id number] OFFICE [address], [place], [place] [address] 08/30/2015 14:19:45 08/30/2015 16:43:02 [id number] Derian Alfonso MD OFFICE [address], [place], [place] [address] 06/29/2016 16:10:59 06/29/2016 18:05:52 [id number] Derian Alfonso MD OFFICE [address], [place] [address] 09/21/2016 09:28:13 09/23/2016 09:23:06 [id number] Derian Alfonso MD OFFICE [address], [place] [address] 09/08/2017 10:52:10 09/10/2017 14:27:28 [id number] Derian Alfonso MD OFFICE [address], [place] [address] 06/22/2018 09:38:46 06/23/2018 16:03:44 Health Concerns Section Related Observation LastModified by Organization Detai ls LastModified Time None Recorded Concern Status LastModified by Organization Details LastModified Time None Recorded Advance Directives Directive None Recorded Payers Encounter Date Sequence Insurance Name Policy Number Policy Bruno Covered Member ID Bruno Member ID Guarantor Name 08/30/2015 1 [place] [id number] Lawrence Toledo [id number] [facility] 06/29/2016 1 [place] [id number] Lawrence Toledo [id number] MichelleFormerly [facility] 09/21/2016 1 [place] [id number] Lawrence Toledo [id number] MichelleFormerly [facility] 09/08/2017 1 [place] [id number] Lawrence Toledo [id number] 52 MichelleFormerly [facility] 06/22/2018 1 [place] [id number] Lawrence Toledo [id number] [address] James Notes Date Note Type Note Provider Name and Address Organization Details Recorded Time 06/29/2016 text/html KneeReported bypatient.Location: right Severity:mild Alleviating Factors:ice; rest; stretching Aggravating Factors:exercise Prior Imaging:x ray Previous PT:helped significantly Derian Alfonso MD [address], [place], [address], [place] - Comp-Assistd and [facility]cn[facility]ctive S[facility] 06/29/2016 17:37:30 09/21/2016 text/html KneeReported bypatient.Location: right Severity:mild Alleviating Factors:rest; stretching Aggravating Factors:standing; exercise Prior Imaging:x ray Previous PT:helped significantly Derian Alfonso MD [address], [place], [address], [place] - [facility]-Assistd and [facility]cn[facility]ctive Surgry 09/21/2016 [...] Derian Alfonso MD [address], [place], [address], [place] - Comp-Assistd and Rcnstrctive Surgry 09/08/2017 [...] MRI Previous PT:helped significantly Derian Alfonso MD [address] [place] [address],[facility] [address], [place], [address], [place] - Comp-Assistd and Rcnstrctive Surgry 06/22/2018 11:14:04 OBGyn Episode No OBEpisode recorded.
== END 2025-01-15 11:23 | disposition home or self-care (01) ==
PROVIDERS: PCP Family Medicine; Referring Provider Nurse Practitioner Family; Visit Provider Physician Assistant
DX: M54.16 Radiculopathy, lumbar region (principal)
CPT/HCPCS: 99204

== ENCOUNTER → 2025-01-15 11:26 | Outpatient (BNV) | payer MEDICARE, SELFPAY | PROVIDERS: PCP Family Medicine; Referring Provider Nurse Practitioner Family; Visit Provider Radiology Diagnostic Radiology | DX: M47.895 Other spondylosis, thoracolumbar region (principal); M43.16 Spondylolisthesis, lumbar region | CPT/HCPCS: 72110 ==

== ENCOUNTER → 2025-02-22 10:47 | Outpatient (BNV) | payer MEDICARE, SELFPAY | PROVIDERS: PCP Family Medicine; Visit Provider Internal Medicine | DX: R00.0 Tachycardia, unspecified (principal) | CPT/HCPCS: 93010 ==

== ENCOUNTER 2025-03-08 09:40 | Day surgery (SDC) | payer MEDICARE, SELFPAY ==
[2025-02-21 09:59] VITALS: BMI 38.9
--- NOTE | 2025-02-22 | ECG_ITS ---
Test Reason : PRE OP Blood Pressure : */* mmHG Vent. Rate : 106 BPM Atrial Rate : 106 BPM P-R Int : 138 ms QRS Dur : 86 ms QT Int : 334 ms P-R-T Axes : 72 -22 53 degrees QTcB Int : 443 ms Sinus tachycardia Low voltage QRS Borderline ECG No previous ECGs available Referred By: Adeola Haskins Electronically Signed By: KAYLA NIELSEN
[2025-02-22 10:11] VITALS: BP 119/65; PULSE 107; RESP 16; O2SAT 97; BMI 42.2
--- NOTE | 2025-02-22 10:30 | HO.ANESPROP2 ---
Documented by User: Adeola Haskins NP 03/07/25 10:11 HPI - Anesthesia Eval Consult details Narrative: 69yo F for L4-5 Decompression, 03/08/25 No recent illness No CP/SOB with minimal activity d/t back pain Hx DI: Pt unsure what was reported by anesthesia letter but states no issue with optical scope intubation Violent anesthesia wake up d/t hx of trauma. Benefits from versed prior to emergence Mast Cell Syndrome: dermal symptoms only, zolair 1 x monthy attempting to get dose preop. Daily rx with certirizine, singulair, famotadine. Will get preop IV pepcid, intraop steroids. Patient declines preop benadryl doesn't do anything for me COPD: albuterol ~ 1 x monthly BRIANNA: CPAP QHS Anesthesia Pre-Procedure Meds Is the patient on any of the following meds?: GLP1/DPP4 PMFSH Active Problems Active Problems: All Active Problems Lumbar radicular pain (Acute) Chronic pain syndrome (Acute) Lumbar degenerative disc disease (Acute) Spinal stenosis, lumbar region with neurogenic claudication (Acute) Lumbosacral spondylosis (Acute) Past Medical History Medical History Back pain Hiatal hernia H/O headache Depression Anxiety BRIANNA on CPAP H/O emphysema Hx of difficult intubation Cervical radiculopathy Lumbar degenerative disc disease Spinal stenosis, lumbar region with neurogenic claudication PTSD (post-traumatic stress disorder) Lumbosacral spondylosis Hypercholesterolemia COPD (chronic obstructive pulmonary disease) Chronic urticaria Chronically dry eyes GERD (gastroesophageal reflux disease) Osteoarthritis of lumbosacral spine with radiculopathy Family History Family history of problems with anesthesia: No Surgical History Surgical History Hx of laparoscopy Hx of bone marrow donation Hx of colonoscopy History of total right hip arthroplasty History of total bilateral knee replacement History of Problems with Anesthesia: Yes (Hx DI) Social History Social History Are you a primary director of career resources to a significant other at home: No Do you presently have visiting nurse or other home services: No Comment: uses walking stick Patient Tobacco Use Status: Former Tobacco user Tobacco use type: Cigarette Use of substances other than those prescribed or required for medical reasons: No Have you been hit, kicked, punched, or otherwise hurt by someone within the past year? If so, by whom?: No Are you DNR?: No Advance Directives: No Advance Directives Information Provided: Yes Advance Directives on File: No Poor oral hygiene: No Meds Allergies Allergy/AdvReac Type Severity Reaction Status Date / Time adhesive Allergy Severe Hives, Verified 03/08/25 10:03 adhesive from regular Band-aids, use paper tape seafood Allergy Severe Anaphylaxis Verified 03/08/25 10:03 Home Medications ?Medication ?Instructions ?Recorded ?Confirmed ?Last Taken ?Type atorvastatin 20 mg tablet 20 mg PO DAILY 11/21/24 03/08/25 03/08/25 History celecoxib 200 mg capsule 200 mg PO DAILY 11/21/24 03/08/25 03/01/25 History clonazepam 0.5 mg tablet 0.5 mg PO BEDTIME 11/21/24 03/08/25 Unknown History cyclobenzaprine 10 mg tablet 10 mg PO BID PRN Muscle Spasm 11/21/24 03/08/25 Unknown History duloxetine 60 mg capsule,delayed 60 mg PO DAILY 11/21/24 03/08/25 Unknown History release estradiol 0.025 mg/24 hr weekly 1 patch transdermal QWEEK 11/21/24 03/08/25 Unknown History transdermal patch famotidine 20 mg tablet 20 mg PO BEDTIME 11/21/24 03/08/25 Unknown History gabapentin 300 mg capsule 300 mg PO TID 11/21/24 03/08/25 Unknown History montelukast 10 mg tablet 10 mg PO BEDTIME 11/21/24 03/08/25 Unknown History pantoprazole 40 mg tablet,delayed 40 mg PO DAILY 11/21/24 03/08/25 03/08/25 History release prazosin 2 mg capsule 2 mg PO BEDTIME 11/21/24 03/08/25 Unknown History progesterone micronized 100 mg 100 mg PO BEDTIME 11/21/24 03/08/25 Unknown History capsule tiotropium 2.5 mcg-olodaterol 2.5 2 puff inhalation DAILY 11/21/24 03/08/25 Unknown History mcg/actuation mist for inhalation (Stiolto Respimat) albuterol sulfate 90 mcg/actuation 2 puff inhalation Q4-6H PRN 02/21/25 03/08/25 Unknown History aerosol inhaler Shortness Of Breath Or Wheezing cetirizine 10 mg capsule (Zyrtec) 20 mg PO BID 02/21/25 03/08/25 03/08/25 History omalizumab 300 mg/2 mL 300 mg subcut Q4W 02/21/25 03/08/25 01/03/25 History subcutaneous auto-injector (Xolair) tirzepatide (weight loss) 2.5 2.5 mg subcut .QSAT02/21/25 03/08/25 02/24/25 History mg/0.5 mL subcutaneous pen injector (Zepbound) hydrocortisone 1 % lotion 1 appl topical DAILY 02/22/25 03/08/25 Unknown History triamcinolone acetonide 0.025 % appl topical BID 02/22/25 02/22/25 Unknown History topical cream valacyclovir 1 gram tablet 2,000 mg PO BID PRN Cold Sores 02/22/25 03/08/25 Unknown History Exam Height,Weight and Vital Signs: Height 5 ft 4.5 in Weight 113.398 kg Last Vital Signs Pulse 107 H 02/22/25 10:11 Resp 16 02/22/25 10:11 BP 119/65 02/22/25 10:11 Pulse Ox 97 02/22/25 10:11 O2 Del Method Room Air 02/22/25 10:11 Pertinent Lab Results Pertinent Lab Results: BMP, A1C from outside facility [place] Narrative Narrative: EKG 02/2025 Vent. Rate : 106 BPM Atrial Rate : 106 BPM P-R Int : 138 ms QRS Dur : 86 ms QT Int : 334 ms P-R-T Axes : 72 -22 53 degrees QTcB Int : 443 ms Sinus tachycardia Low voltage QRS Borderline ECG No previous ECGs available Airway Mallampati Class: IV TM Dist: <=3cm Neck ROM: Full Loose/Missing/Broken Teeth: Yes (Implant right molar, crowned molars throughout) Heart: tachy, regular Lungs: CTAB Assessment and Plan Assessment Anesthesia Assessment: Anesthesia Plan Discussed and PAT Visit Final Anesthetic Review Family History of Problems with Anesthesia: No History of Problems with Anesthesia: Yes (Hx DI) Documented by User: Gladys Merino MD 03/08/25 11:23 [facility] Past Medical History Medical History Back pain Hiatal hernia H/O headache Depression Anxiety BRIANNA on CPAP H/O emphysema Hx of difficult intubation Cervical radiculopathy Lumbar degenerative disc disease Spinal stenosis, lumbar region with neurogenic claudication PTSD (post-traumatic stress disorder) Lumbosacral spondylosis Hypercholesterolemia COPD (chronic obstructive pulmonary disease) Chronic urticaria Chronically dry eyes GERD (gastroesophageal reflux disease) Osteoarthritis of lumbosacral spine with radiculopathy Surgical History Surgical History Hx of laparoscopy Hx of bone marrow donation Hx of colonoscopy History of total right hip arthroplasty History of total bilateral knee replacement Social History Social History Are you a primary director of career resources to a significant other at home: No Do you presently have visiting nurse or other home services: No Comment: uses walking stick Patient Tobacco Use Status: Former Tobacco user Tobacco use type: Cigarette Use of substances other than those prescribed or required for medical reasons: No Have you been hit, kicked, punched, or otherwise hurt by someone within the past year? If so, by whom?: No Are you DNR?: No Advance Directives: No Advance Directives Information Provided: Yes Advance Directives on File: No Poor oral hygiene: No Meds Allergies Allergy/AdvReac Type Severity Reaction Status Date / Time adhesive Allergy Severe Hives, Verified 03/08/25 10:03 adhesive from regular Band-aids, use paper tape seafood Allergy Severe Anaphylaxis Verified 03/08/25 10:03 Home Medications ?Medication ?Instructions ?Recorded ?Confirmed ?Last Taken ?Type atorvastatin 20 mg tablet 20 mg PO DAILY 11/21/24 03/08/25 03/08/25 History celecoxib 200 mg capsule 200 mg PO DAILY 11/21/24 03/08/25 03/01/25 History clonazepam 0.5 mg tablet 0.5 mg PO BEDTIME 11/21/24 03/08/25 Unknown History cyclobenzaprine 10 mg tablet 10 mg PO BID PRN Muscle Spasm 11/21/24 03/08/25 Unknown History duloxetine 60 mg capsule,delayed 60 mg PO DAILY 11/21/24 03/08/25 Unknown History release estradiol 0.025 mg/24 hr weekly 1 patch transdermal QWEEK 11/21/24 03/08/25 Unknown History transdermal patch famotidine 20 mg tablet 20 mg PO BEDTIME 11/21/24 03/08/25 Unknown History gabapentin 300 mg capsule 300 mg PO TID 11/21/24 03/08/25 Unknown History montelukast 10 mg tablet 10 mg PO BEDTIME 11/21/24 03/08/25 Unknown History pantoprazole 40 mg tablet,delayed 40 mg PO DAILY 11/21/24 03/08/25 03/08/25 History release prazosin 2 mg capsule 2 mg PO BEDTIME 11/21/24 03/08/25 Unknown History progesterone micronized 100 mg 100 mg PO BEDTIME 11/21/24 03/08/25 Unknown History capsule tiotropium 2.5 mcg-olodaterol 2.5 2 puff inhalation DAILY 11/21/24 03/08/25 Unknown History mcg/actuation mist for inhalation (Stiolto Respimat) albuterol sulfate 90 mcg/actuation 2 puff inhalation Q4-6H PRN 02/21/25 03/08/25 Unknown History aerosol inhaler Shortness Of Breath Or Wheezing cetirizine 10 mg capsule (Zyrtec) 20 mg PO BID 02/21/25 03/08/25 03/08/25 History omalizumab 300 mg/2 mL 300 mg subcut Q4W 02/21/25 03/08/25 01/03/25 History subcutaneous auto-injector (Xolair) tirzepatide (weight loss) 2.5 2.5 mg subcut .QSATURDAY 02/21/25 03/08/25 02/24/25 History mg/0.5 mL subcutaneous pen injector (Zepbound) hydrocortisone 1 % lotion 1 appl topical DAILY 02/22/25 03/08/25 Unknown History triamcinolone acetonide 0.025 % appl topical BID 02/22/25 02/22/25 Unknown History topical cream valacyclovir 1 gram tablet 2,000 mg PO BID PRN Cold Sores 02/22/25 03/08/25 Unknown History Exam Airway Mallampati Class: III TM Dist: >3cm Loose/Missing/Broken Teeth: No Assessment and Plan Final Anesthetic Review NPO: Yes ASA Class: III Final Preanesthetic Review: Meds/Allgs Chart Reviewed, Consent Obtained/Reviewed and Anes Risks/Benef Reviewed Patient Risk: Intermediate Procedure Risk: Intermediate Anesthetic Plan Anesthetic Plan: GA Disposition: Standard PACU
[2025-03-08] VITALS (11 sets, daily range): BP systolic 99–137; BP diastolic 40–71; PULSE 85–96; RESP 16–18; TEMP 36.1–36.9; O2SAT 92–97; BMI 42.2
--- NOTE | ~2025-03-08 | FL_ITS ---
EXAMINATION: FL GUIDANCE ONLY HISTORY: L4-5 DECOMPRESSION COMPARISON: None available. TECHNIQUE: Fluoroscopy time: Less than 1 minute. Cumulative Dose: 5.78 mGy. DAP: 1.12 mGym2 Images: 1. FINDINGS: A single fluoroscopic spot film of the lumbar spine in the lateral projection demonstrates a probe directed toward the L4-5 intervertebral disc space from a posterior approach. FL/FL guidance in OR IMPRESSION: Fluoroscopy during procedure. Please see procedure report for additional information. Electronically signed by: Everardo Doan MD 03/08/2025 12:50 PM EDT
[2025-03-08] MEDS: Gabapentin 300 MG CAPSULE PO (10:19)
[2025-03-08] MEDS: methocarbamoL 750 MG TABLET PO (10:19)
[2025-03-08] MEDS: Lactated Ringers 1,000 ML 100 ML IVCONT (10:28)
[2025-03-08] MEDS: Famotidine/PF 20 MG/2 ML VIAL IVPUSH (10:28)
--- NOTE | 2025-03-08 10:29 | MHC.SHP ---
Pre-Procedural Eval Section A - 24 Hr Update-Section A only Date of Service: 03/08/25 The patient is an INPATIENT: No Section B - Complete if H&P > 30 days Chief Complaint: Radiculopathy, lumbar region Allergies: Allergies Allergy/AdvReac Type Severity Reaction Status Date / Time adhesive Allergy Severe Hives, Verified 03/08/25 10:03 adhesive from regular Band-aids, use paper tape seafood Allergy Severe Anaphylaxis Verified 03/08/25 10:03 Review of Systems Sugical H&P ROS: Negative: Constitution, Cardiovascular, Respiratory, Neurological, Psychiatric, Hem-Onc, Allergic/Immunologic, Gastrointestinal, Genitourinary, Musculoskeletal, Integumentary, Endocrine and Eyes/Ears/Nose/Throat Exam Surgical H&P Exam: Normal: HEENT, Normal: Heart, Normal: Lungs, Normal: Extremities, Normal: Abdomen, Normal: Skin and Normal: Neurological (Awake, alert) Plan Diagnosis/Plan: Unchanged I have reviewed the history and physical and performed a pertinent physical examination on my patient. No changes have occurred unless specified. L4-5 decompression Time Spent With Patient Time: Total time managing care of this patient today _5___ minutes.
--- NOTE | 2025-03-08 11:50 | PM.DS ---
DS: Providers Provider Date of Service: 03/08/25 Date of discharge: 03/08/25 Primary care physician: Lauren Douglas MD Admitting clinician: William Souza DS: Diagnosis Discharge Diagnosis (1) Lumbar radicular pain: Status: Acute DS: Summary Time Attestation Discharge Coordination Time (in mins): 4 Quality: Safe Use of Opioids Does Pt have an Active Cancer Diagnosis on the Problem List?: No Quality: Stroke Does the patient have a stroke diagnosis?: No Physical Exam Vital Signs: Vital Signs: Last Vital Signs Temp 98.4 F 03/08/25 09:59 Pulse 96 03/08/25 09:59 Resp 16 03/08/25 09:59 BP 137/57 L 03/08/25 09:59 Pulse Ox 92 03/08/25 09:59 O2 Del Method Room Air 03/08/25 09:59 BMI result Body Mass Index 42.2 Discharge Plan Discharge Patient Disposition: Home, Self-Care Referrals: Lauren Douglas MD [Primary Care Provider] - 1 Week Discharge Medications: New docusate sodium [Colace] 100 mg capsule 100 mg PO BID Qty: 20 0RF oxycodone 5 mg tablet 5 mg PO Q4H PRN (Reason: pain) Qty: 20 0RF Rx Instructions: Partial Fill upon patient request. Continued albuterol sulfate 90 mcg/actuation Hfa Aerosol Inhaler 2 puff INHALATION Q4-6H PRN (Reason: Shortness Of Breath Or Wheezing) Zyrtec 10 mg Capsule 20 mg PO BID Zepbound 2.5 mg/0.5 mL pen injector 2.5 mg subcut .QSATURDAY triamcinolone acetonide 0.025 % cream topical BID hydrocortisone 1 % Lotion 1 appl TOPICAL DAILY valacyclovir 1 gram tablet 2,000 mg PO BID PRN (Reason: Cold Sores) famotidine 20 mg tablet 20 mg PO BEDTIME progesterone micronized 100 mg capsule 100 mg PO BEDTIME atorvastatin 20 mg tablet 20 mg PO DAILY clonazepam 0.5 mg tablet 0.5 mg PO BEDTIME cyclobenzaprine 10 mg tablet 10 mg PO BID PRN (Reason: Muscle Spasm) estradiol 0.025 mg/24 hr patch weekly 1 patch transdermal QWEEK celecoxib 200 mg capsule 200 mg PO DAILY Stiolto Respimat 2.5-2.5 mcg/actuation mist 2 puff inhalation DAILY gabapentin 300 mg capsule 300 mg PO TID prazosin 2 mg capsule 2 mg PO BEDTIME montelukast 10 mg tablet 10 mg PO BEDTIME duloxetine 60 mg capsule,delayed release(DR/EC) 60 mg PO DAILY pantoprazole 40 mg tablet,delayed release (DR/EC) 40 mg PO DAILY Held Xolair 300 mg/2 mL Auto-Injector 300 mg SUBCUT Q4W Hold Instructions: Resume on 03/22/25. You may resume 2 weeks after surgery as long as your wound is healed Discharge Orders: Discharge Order (Routine); Ordered 03/08/25 Ordered By: Roel Montana Diet: Advance to usual diet Activity on Discharge: As tolerated Activity Restrictions/Additional Instructions: After your spinal surgery we ask you to observe the following restrictions/guidelines: YOU HAD A SMALL SPINAL FLUID LEAK SEEN AT THE TIME OF SURGERY. IT IS NORMAL TO EXPERIENCE MILD HEADACHES WHEN THIS HAPPENS. IF YOU EXPERIENCE SEVERE HEADACHES PLEASE CALL OUR OFFICE TO UPDATE US. USUALLY IT WILL GO AWAY IF YOU STAY FLAT IN BED FOR A DAY. IF YOU EXPERIENCE ANY LEAKING FROM YOUR WOUND WHICH LOOKS LIKE CLEAR WATER, WE ASK THAT YOU CALL US RIGHT AWAY. [phone] Activity: It is normal to feel some discomfort as you increase your activity, but that will improve with time. We ask you avoid heavy lifting or acitivities that cause pain. As a general rule, 8lbs is a safe limit for lifting right after surgery. Walk as much as you feel comfortable but not to exhaustion. You will feel extra tired the first few days after surgery. Stay well hydrated. It is OK to walk up and down stairs You may return to driving when you are off narcotics (such as vicodin, oxycodone, dilaudid, etc), and you are back to normal functional capacity. If you have any concerns please check with office before driving. Return to work is specific to each patient and each surgery, so please speak with your doctor/PA at first follow up. Please bring paperwork such as FMLA at that time if you need it filled out. Medications: You may resume Xolair after 2 weeks as long as your wound is healed For optimum pain control, it is best to start with a combination of 500 mg of Tylenol every 4 hours with 600 mg of Motrin every 8 hours, and use narcotics as needed in between for breakthrough pain. We will give you a short supply of narcotics after surgery (usually one weeks worth). If you need more please call the office but do not use more than prescribed. You will need to give our office 48 hours notice if you need narcotics refilled and we do not fill narcotics on weekends or evenings. If you are on a narcotic, it is a good idea to take a stool softener such as colace or senna to avoid constipation If you take blood thinner such as aspirin, Plavix, Coumadin, Effient, Eliquis etc for conditions such as Afib, DVT, Pulmonary embolus, coronary disease, stents etc please speak with your surgeon about specific details as to when you can resume these medications. You can resume NSAIDs on post op day 1 (eg: Motrin, Naproxen, etc). Follow up: Please call the office, , after surgery to arrange a 3 week follow up for wound check. Wound Care: You may remove your dressing on the first day after surgery. You may leave open to air. You have sutures in your wound that will need to be removed in 10-14 days. IT IS NORMAL FOR THE WOUND TO OOZE OR BE BLOODY FOR A FEW DAYS AFTER SURGERY. IF THIS HAPPENS JUST PLACE NEW DRESSING OVER IT TO AVOID STAINING CLOTHES. You may shower on post op day # 1 We ask that you do not let the water soak the wound. If it does get wet, just towel dry lightly. Please do not scrub your incision or place any type of chemical/ointment on the wound. No tub baths, pools or jacuzzis for one month. If you have any leaking or redness from your wound, or fevers, please call office Print Language: Russian
[2025-03-08] MEDS: ceFAZolin Sodium/Dextrose,Iso 2 GM/50 ML PIGGYBACK IV (12:00)
[2025-03-08] MEDS: Acetaminophen 1,000 MG/100 ML PIGGYBACK 400 MG IV (12:27)
[2025-03-08] MEDS: HYDROmorphone HCl 0.5 MG/0.5 ML SYRINGE 0.25 MG IVPUSH ×4 (13:40→13:55)
[2025-03-08] MEDS: ondansetron HCL 4 MG/2 ML VIAL IVPUSH (14:27)
--- NOTE | 2025-03-13 16:20 | P.OP_ITS ---
Operative Note Operative Note Date of Service: 03/08/25 Narrative: Preoperative Diagnosis: L4-5 spinal stenosis/lateral recess stenosis/neural foraminal stenosis Operation: L4-5 Laminotomy, Partial facetectomy and foraminotomy with use of microscope Consent Informed Consent was obtained for this operation. I have explained the nature, purpose and benefits of the operation. I have discussed the risks and benefit of the operation including possible complications or adverse events with patient/family. Alternative(s) were discussed with the patient with their relative benefits and risks as well as the consequences of not accepting the operation were included in obtaining consent. Surgeon: OMKAR ROSENBERG MD, PHD Procedure Assisted By: Roel Serrato Description of Procedure This patient is suffering from neurogenic claudication. MRI shows moderate central L4-5 spinal stenosis. The patient was offered a decompression. The procedure complications were explained. The patient was consented. The patient was brought to the operating room and endotracheally intubated. The patient was turned in prone position on the Matheus frame. Prep and drape was done followed by timeout. The Physician cancer genetics assistant provided access. A mid lumbar incision was made followed by release of the paravertebral muscle the left side to expose the left L4-5 laminae and facet joints. An intraoperative x-ray was obtained to confirm the correct level. The microscope was brought in. I took over the procedure. The high-speed drill was used to do a left L4-5 laminotomy until flavum ligament was reached. A #2 Kerrison was used to expand the laminotomy near flush to the pedicles and to include a partial facetectomy. The flavum ligament was opened and resected with a #3 Kerrison to decompress the underlying thecal sac. The flavum ligament was removed to decompress the lateral recess a nd the exiting L5 nerve. Patient was started contralaterally after wishes spinous process was undercut to reach the contralateral side. A flavum ligament was resected towards the contralateral side to decompress the thecal sac and lateral recess. Then I looked again at the left side and thought that there was maybe still some material compressing on the L5 nerve root therefore try to spent in medial facetectomy further and with the last bite I produced a small durotomy. The durotomy was covered with a piece of DuraGen and tissue call. Valsalva maneuver showed no active CSF leak. The microscope was removed. Hemostasis was done. The physician cancer genetics assistant close the incision in 3 layers. An OpSite with Tegaderm was used to cover the incision. All sponge needle counts were correct. Patient was extubated and transported in stable is to recovery room. Anesthesia: General Estimated Blood Loss (ml): Minimal Complications: Durotomy Duration of Surgery: Under 60 Minutes Postoperative Plan: Discharge to home
== END 2025-03-08 15:06 | disposition home or self-care (01) ==
PROVIDERS: PCP Family Medicine; Visit Provider Neurological Surgery
PROC: (CPT 63047; principal; 2025-03-08 12:00)
DX: M48.062 Spinal stenosis, lumbar region with neurogenic claudication (principal); G97.41 Accidental puncture or laceration of dura during a procedure; M51.16 Intervertebral disc disorders with radiculopathy, lumbar region; G89.29 Other chronic pain; M54.50 Low back pain, unspecified; R26.2 Difficulty in walking, not elsewhere classified; R26.89 Other abnormalities of gait and mobility; M19.90 Unspecified osteoarthritis, unspecified site; L50.8 Other urticaria; J44.9 Chronic obstructive pulmonary disease, unspecified; G47.33 Obstructive sleep apnea (adult) (pediatric); F43.10 Post-traumatic stress disorder, unspecified; K21.9 Gastro-esophageal reflux disease without esophagitis; K44.9 Diaphragmatic hernia without obstruction or gangrene; Y65.8 Other specified misadventures during surgical and medical care; Y92.234 Operating room of hospital as the place of occurrence of the external cause; Z79.1 Long term (current) use of non-steroidal anti-inflammatories (NSAID); Z79.620 Long term (current) use of immunosuppressive biologic; Z79.85 Long-term (current) use of injectable non-insulin antidiabetic drugs; Z79.899 Other long term (current) drug therapy; Z96.653 Presence of artificial knee joint, bilateral; Z98.890 Other specified postprocedural states; Z96.641 Presence of right artificial hip joint
CPT/HCPCS: 63047; 93005; C1763; C9250; J0131; J0690; J1100; J1171; J1885; J2003; J2250; J2405; J2704; J3010

== ENCOUNTER → 2025-03-08 09:40 | Outpatient (BNV) | payer MEDICARE, SELFPAY | PROVIDERS: PCP Family Medicine; Visit Provider Physician Assistant | DX: M54.16 Radiculopathy, lumbar region (principal) | CPT/HCPCS: 99499 ==

== ENCOUNTER 2025-03-19 11:21 | Outpatient (AMB) | payer MEDICARE, SELFPAY ==
--- NOTE | 2025-03-19 11:24 | A.SPINEOV_ITS ---
Intake Visit Reasons: Suture Removal Intake Note: Ms. James is here today to have her Sutures removed. Nurses[employer] Association Executive Director Required: No Allergies adhesive Allergy (Severe, Verified 03/19/25 11:25) Hives, adhesive from regular Band-aids, use paper tape seafood Allergy (Severe, Verified 03/19/25 11:25) Anaphylaxis Assessment & Plan Assessment & Plan (1) S/P laminectomy: Code(s): Z98.890 - Other specified postprocedural states Category: Surgical Plan Michelle comes in today for suture removal after incidental durotomy occured during L4-5 laminotomy. She has had no headaches / dizziness or balance issues since her surgery. She has no active drainage from the incision site. She tolerated the suture removal well. We will follow up with her routinely for her 2nd postoperative visit. Reed Souza MD,PhD [facility] Coding Level of Care Code Global (85726) Diagnoses S/P laminectomy Z98.890
--- OUTSIDE RECORDS SUMMARY | 2025-03-19 13:43 | XMS_ITS | Data Portability ---
Author Organization [facility], OFFICE Address [address], [facility] [address] [place] [address] Assessment Encounter Date Assessment Date Assessment LastModified [...] Organization Details Recorded Time Osteoarthritis of knee [id number] Active Derian Alfonso MD [address], [place], [address], [place] - [facility] 5 15:52:14 Localized, primary osteoarthritis of the pelvic region and thigh 441658413 Active Derian Alfonso MD [address], [place], [address], [place] - Comp-Assistd and [facility] 4 15:56:34 Problem Notes None recorded. Procedures Surgical History Date Name Laterality Status Provider Name and Address Organization Details Recorded Time 6 Knee Surgery completed Derian Alfonso MD [address], [place], [address], [place] - [facility] and [facility] 06/29/2016 17:30:17 4 Hip Surgery completed Derian Alfonso MD [address], [place], [address], [place] - Comp-Assistd and [facility] 11/12/2014 15:54:45 Knee Surgery completed Derian Alfonso MD [address], [place], [address], [place] - Comp-Assistd and [facility] 06/22/2018 11:12:36 General Surgery completed Derian Alfonso MD [address], [place], [address], [place] - Comp-Assistd and [facility] 08/22/2014 15:24:13 Imaging Results None recorded. Procedure Notes None recorded. Medical Equipment None Reported. Allergies Allergen ID Allergen Name Allergen Category Reaction Reaction Severity Criticality Documentation Date Start Date Code Code System Note Provider Name and Address Organization Details Recorded Time 1081 shellfish derived food,medi cation Not available Not available Not available 08/22/2014 [id number] UNK Derian Alfonso MD [address], [place], [address], [place] - Comp-Assistd and Rcnstrctive Surgry [...] -homatropin e 5 mg-1.5 mg/5 mL oral solution active Not Available Not Available Not Available montelukast 10 mg tablet active Not [...] Updated DateTime 08/30/2015 167.64 cm 29.9 kg/m2 12568.28261 g Violette Wilson [place] - Comp-Assistd and [facility] 08/30/2015 14:48:54 Date Recorded Systolic blood pressure Diastolic blood pressure Provider Name and Address Organization Details Last Updated DateTime 08/30/2015 115 mm[Hg] 80 mm[Hg] Derian Alfonso MD [address] [facility] [address], [place], [address], [place] - Comp-Assistd and [facility]cn[facility]ctive Surg[facility] 08/30/2015 15:22:18 Date Recorded Body height Body weight Body mass index (BMI) Provider Name and Address Organization Details Last Updated DateTime 06/29/2016 167.64 cm 62277.55 g 30.7 kg/m2 Violette Wilson [place] - Comp-Assistd and [facility]cn[facility] 06/29/2016 16:38:49 Date Recorded Systolic blood pressure Diastolic blood pressure Provider Name and Address Organization Details Last Updated DateTime 06/29/2016 131 mm[Hg] 89 mm[Hg] Derian Alfonso MD [address] [facility],[address], [place], [address], [place] - Comp-Assistd and Rcnstrctive Surgry 06/29/2016 16:55:17 Date Recorded Body height Body weight Body mass index (BMI) Provider Name and Address Organization Details Last Updated DateTime 09/21/2016 167.64 cm 73012.92 g 31.3 kg/m2 Violette Wilson [place] - Comp-Assistd and [facility]cn[facility] S[facility] 09/21/2016 09:28:58 Date Recorded Body height Body mass index (BMI) Body weight Systolic blood pressure Diastolic blood pressure Provider Name and Address Organization Details Last Updated DateTime 09/08/2017 167.64 cm 29.9 kg/m2 12434.59 g 116 mm[Hg] 81 mm[Hg] Violette Wilson [place] - Comp-Assistd and Rcnstrctive Surgry 7 12:13:09 Date Recorded Body height Body mass index (BMI) Body weight Systolic blood pressure Diastolic blood pressure Provider Name and Address Organization Details Last Updated DateTime 06/22/2018 167.64 cm 31.5 kg/m2 17436.51 g 126 mm[Hg] 83 mm[Hg] Violette Wilson [place] - Comp-Assistd and Rcnstrctive Surgry 8 10:40:56 Social History Question Answer Notes LastModified by Organizat ion Details LastModified Time Tobacco Smoking Status Former Smoker Derian Alfonso MD [address] [place] [address] [address], [place], [address] [place] - Comp-Assistd and [facility] Surg[facility] 08/22/2014 15:24:13 What Was The Date Of Your Most Recent Tobacco Screening? 06/22/2018 Information n ot available 06/15/2019 Sex: Unknown Functional Status None recorded. Mental Status None recorded. Family History Nothing Reported. Medical History Condition Response Heart Problems N Coronary Artery Disease N Gout N Anxiety/Depression N Blood Transfusion N Hernia N Migraines N Thyroid Problems N COPD N Pacemaker N Anemia N Heart Attack (MS) N Ulcers N Diabetes N Bleeding Disorder [...] SNOMED-CT Code Diagnosis ICD10 Code Diagnosis Note [id number] Derian Alfonso MD OFFICE [address], [address] [place] [address] 08/22/2014 13:35:34 08/22/2014 15:38:18 [id number] Adelita Solorio OFFICE [address], [address] [address] 11/12/2014 14:03:19 11/12/2014 16:00:30 [id number] OFFICE [address], [place] [address] 08/30/2015 14:19:45 08/30/2015 16:43:02 [id number] Derian Alfonso MD OFFICE [address], [place] [address] 06/29/2016 16:10:59 06/29/2016 18:05:52 [id number] Derian Alfonso MD OFFICE [address], [place] [address] 09/21/2016 09:28:13 09/23/2016 09:23:06 [id number] Derian Alfonso MD OFFICE [address], [place] [address] 09/08/2017 10:52:10 09/10/2017 14:27:28 [id number] Derian Alfonso MD OFFICE [address], [place] [address] 06/22/2018 09:38:46 06/23/2018 16:03:44 Health Concerns Section Related Observation LastModified by Organization Detai ls LastModified Time None Recorded Concern Status LastModified by Organization Details LastModified Time None Recorded Advance Directives Directive None Recorded Payers Encounter Date Sequence Insurance Name Policy Number Policy Bruno Covered Member ID Bruno Member ID Guarantor Name 08/30/2015 1 [place] [id number] Lawrence Toledo [id number] Michelle James 06/29/2016 1 [place] [id number] Lawrence Toledo [id number] Michelle James 09/21/2016 1 [place] [id number] Lawrence Toledo [id number] Michelle James 09/08/2017 1 [place] [id number] Lawrence Toledo [id number] Michelle Jacob 06/22/2018 1 [facility] [id number] Lawrence Toledo [id number] Michelle Jacob Notes Date Note Type Note Provider Name and Address Organization Details Recorded Time 06/29/2016 text/html KneeReported bypatient.Location: right Severity:mild Alleviating Factors:ice; rest; stretching Aggravating Factors:exercise Prior Imaging:x ray Previous PT:helped significantly Derian Alfonso MD [address], [place], [address], [place] - Comp-Assistd and [facility] 06/29/2016 17:37:30 09/21/2016 text/html KneeReported bypatient.Location: right Severity:mild Alleviating Factors:rest; stretching Aggravating Factors:standing; exercise Prior Imaging:x ray Previous PT:helped significantly Derian Alfonso MD [address], [place], [address], [place] - Comp-Assistd and Rcnstrctive Surgry 09/21/2016 [...] Derian Alfonso MD [address], [place], [address], [place] - Comp-Assistd and Rcnstrctive Surgry 09/08/2017 [...] MRI Previous PT:helped significantly Derian Alfonso MD [address] [place] [address],[facility] [address], [place], [address], [place] - Comp-Assistd and Rcnstrctive Surgry 06/22/2018 11:14:04 OBGyn Episode No OBEpisode recorded.
== END 2025-03-19 11:39 | disposition home or self-care (01) ==
LOC: HO.HNS 11:21
PROVIDERS: PCP Family Medicine; Visit Provider Physician Assistant
DX: Z98.890 Other specified postprocedural states (principal)
CPT/HCPCS: 99024

== ENCOUNTER → 2025-03-19 11:21 | Outpatient (BNVA) | payer MEDICARE, SELFPAY | PROVIDERS: PCP Family Medicine; Visit Provider Physician Assistant | DX: Z48.1 Encounter for planned postprocedural wound closure (principal); Z98.890 Other specified postprocedural states | CPT/HCPCS: 99212 ==

== ENCOUNTER 2025-04-30 11:04 | Outpatient (AMB) | payer MEDICARE, SELFPAY ==
--- NOTE | 2025-04-30 11:08 | HO.SPINEOV ---
Intake Visit Reasons: 2nd post op Intake Note: Ms. James is here today for her 2nd post op. French Edge Operator Required: No Allergies adhesive Allergy (Severe, Verified 03/19/25 11:25) Hives, adhesive from regular Band-aids, use paper tape seafood Allergy (Severe, Verified 03/19/25 11:25) Anaphylaxis Assessment & Plan Assessment & Plan (1) S/P laminectomy: Code(s): Z98.890 - Other specified postprocedural states Category: Surgical Plan Procedure: L4-5 Laminotomy with incidental durotomyRoddy Martinez is a pleasant 69-year-old female who comes in today for her 2nd postoperative visit after having a L4-[address] Souza. She reports that overall she has done well since her surgery, and states she has about a 25% total pain reduction, accompanied by a significant increase in her ability to mobilize. She is very satisfied with this as of right now, in his hopeful that she will continue to get better and he will as the days progress. No new neurological deficits the patient ambulates well and rises from a seated position without difficulty. There is no need for continued routine follow up with Michelle, she may be discharged as a patient. Reed Souza MD,PhD [facility] Coding Level of Care Code Global (25085) Diagnoses S/P laminectomy Z98.890
--- OUTSIDE RECORDS SUMMARY | 2025-04-30 12:40 | XMS_ITS | Data Portability ---
Author Organization [facility] - Gabriella-Sandra [facility]all [facility], OFFICE Address [address], [facility] [address] [place] [address] Assessment Encounter Date Assessment Date Assessment LastModified by Organization Details LastModified Time 08/30/2015 08/30/2015 Janna is doing exceedingly well following elective THR. Unfortunately she is having progressive right knee problems. We don't have radiographs but she has obvious bony crepitus in the PFJ on exam. She will clearly benefit from TKR at some point in the future. We'll determine further treatment based on her clinical [...] Organization Details Recorded Time Osteoarthritis of knee [id number] Active Derian Alfonso MD [address], [place], [address], [place] - [facility] 5 15:52:14 Localized, primary osteoarthritis of the pelvic region and thigh [id number] Active Derian Alfonso MD [address], [place], [address], [place] - [facility] and [facility] 4 15:56:34 Problem Notes None recorded. Procedures Surgical History Date Name Laterality Status Provider Name and Address Organization Details Recorded Time 6 Knee Surgery completed Derian Alfonso MD [address], [place], [address], [place] - [facility] 06/29/2016 17:30:17 4 Hip Surgery completed Derian Alfonso MD [address], [place], [address], [place] - [facility] and [facility] 11/12/2014 15:54:45 Knee Surgery completed Derian Alfonso MD [address], [place], [address], [place] - [facility] 06/22/2018 11:12:36 General Surgery completed Derian Alfonso MD [address], [place], [address], [place] - [facility] 08/22/2014 15:24:13 Imaging Results None recorded. Procedure Notes None recorded. Medical Equipment None Reported. Allergies Allergen ID Allergen Name Allergen Category Reaction Reaction Severity Criticality Documentation Date Start Date Code Code System Note Provider Name and Address Organization Details Recorded Time 1081 shellfish derived food,medi cation Not available Not available Not available 08/22/2014 54228 UNK Derian Alfonso MD [address], [place], [address], [place] - [facility] 4 [...] Updated DateTime 06/22/2018 167.64 cm 31.5 kg/m2 08053.51 g 126 mm[Hg] 83 mm[Hg] Violette Wilson [place] - Comp[facility]d and Rcn[facility] Surg[facility] 8 10:40:56 Date Recorded Systolic blood pressure Diastolic blood pressure Provider Name and Address Organization Details Last Updated DateTime 06/29/2016 131 mm[Hg] 89 mm[Hg] Derian Alfonso MD [address] [facility] [address],[facility] [address], [place], [address], [place] - Comp-Assistd and Rcnstrctive Surgry 06/29/2016 16:55:17 Date Recorded Body height Body weight Body mass index (BMI) Provider Name and Address Organization Details Last Updated DateTime 06/29/2016 167.64 cm 56268.55 g 30.7 kg/m2 Violette Wilson [place] - Comp[facility]Assistd and Rcnstrctive Surgry 06/29/2016 16:38:49 Date Recorded Systolic blood pressure Diastolic blood pressure Provider Name and Address Organization Details Last Updated DateTime 08/30/2015 115 mm[Hg] 80 mm[Hg] Derian Alfonso MD [address] [facility] [address], [place], [address], [place] - [facility] and [facility] 08/30/2015 15:22:18 Date Recorded Body height Body mass index (BMI) Body weight Provider Name and Address Organization Details Last Updated DateTime 08/30/2015 167.64 cm 29.9 kg/m2 62716.22936 g Violette Wilson [place] - [facility]Assistd and Rcn[facility]ctive Surg[facility] 08/30/2015 14:48:54 Date Recorded Body height Body mass index (BMI) Body weight Systolic blood pressure Diastolic blood pressure Provider Name and Address Organization Details Last Updated DateTime 09/08/2017 167.64 cm 29.9 kg/m2 81860.59 g 116 mm[Hg] 81 mm[Hg] Violette Wilson [place] - Comp[facility]Assistd and Rcn[facility]ctive Surgry 12:13:09 Date Recorded Body height Body weight Body mass index (BMI) Provider Name and Address Organization Details Last Updated DateTime 09/21/2016 167.64 cm 28735.92 g 31.3 kg/m2 Violette Wilson [place] - Comp-Assistd and Rcnstrctive Surg[facility] 09/21/2016 09:28:58 Social History Question Answer Notes LastModified by Organizat ion Details LastModified Time Tobacco Smoking Status Former Smoker Derian Alfonso MD [address] [facility] [address],[facility] [address], [address] [place] - Comp-Assistd and Rcnstrctive [...] N Pacemaker N Anemia N Heart Attack (NH) N Ulcers N Diabetes N Bleeding Disorder [...] SNOMED-CT Code Diagnosis ICD10 Code Diagnosis Note [id number] Derian Alfonso MD OFFICE [address], [address] [place] [address] 08/22/2014 13:35:34 08/22/2014 15:38:18 [id number] Derian Alfonso MD OFFICE [address], [address] [place] [address] 11/12/2014 14:03:19 11/12/2014 16:00:30 [id number] Derian Alfonso MD OFFICE [address], [address] [address] 08/30/2015 14:19:45 08/30/2015 16:43:02 [id number] Derian Alfonso MD OFFICE [address], [address] [place] [address] 06/29/2016 16:10:59 06/29/2016 18:05:52 [id number] Derian Alfonso MD OFFICE [address], [address] [address] 09/21/2016 09:28:13 09/23/2016 09:23:06 [id number] Derian Alfonso MD OFFICE [address], [address] [place] [address] 09/08/2017 10:52:10 09/10/2017 14:27:28 [id number] Derian Alfonso MD OFFICE [address], [address] [place] [address] 06/22/2018 09:38:46 06/23/2018 16:03:44 Health Concerns Section Related Observation LastModified by Organization Detai ls LastModified Time None Recorded Concern Status LastModified by Organization Details LastModified Time None Recorded Advance Directives Directive None Recorded Payers Encounter Date Sequence Insurance Name Policy Number Policy Bruno Covered Member ID Bruno Member ID Guarantor Name 08/30/2015 1 [place] [id number] Lawrence Toledo [id number] Michelle James 06/29/2016 1 [place] [id number] Lawrence Toledo [id number] Michelle James 09/21/2016 1 [place] [id number] Lawrence Toledo [id number] Michelle James 09/08/2017 1 [place] [id number] Lawrence Toledo [id number] Michelle James 06/22/[address] [facility] [id number] Lawrence Toledo [id number] Jacob Notes Date Note Type Note Provider Name and Address Organization Details Recorded Time 06/29/2016 text/html KneeReported bypatient.Location: right Severity:mild Alleviating Factors:ice; rest; stretching Aggravating Factors:exercise Prior Imaging:x ray Previous PT:helped significantly Derian Alfonso MD [address], [place], [address], [place] - [facility]d and [facility]ctive S[facility] 06/29/2016 17:37:30 09/21/2016 text/html KneeReported bypatient.Location: right Severity:mild Alleviating Factors:rest; stretching Aggravating Factors:standing; exercise Prior Imaging:x ray Previous PT:helped significantly Derian Alfonso MD [address], [place], [address], [place] - [facility]-Ass[facility]d and Rcn[facility]ctive Surgry 09/21/2016 [...] Derian Alfonso MD [address], [place], [address], [place] - Comp-Assistd and Rcnstrctive Surgry 09/08/2017 [...] MRI Previous PT:helped significantly Derian Alfonso MD [address] [place] [address],[facility] [address], [place], [address], [facility] - Comp-Assistd and Rcnstrctive Surgry 06/22/2018 11:14:04 OBGyn Episode No OBEpisode recorded.
== END 2025-04-30 11:46 | disposition home or self-care (01) ==
LOC: HO.HNS 11:05
PROVIDERS: PCP Family Medicine; Visit Provider Physician Assistant
DX: Z98.890 Other specified postprocedural states (principal)
CPT/HCPCS: 99024

== ENCOUNTER → 2025-04-30 11:04 | Outpatient (BNVA) | payer MEDICARE, SELFPAY | PROVIDERS: PCP Family Medicine; Visit Provider Physician Assistant | DX: Z48.89 Encounter for other specified surgical aftercare (principal); Z98.890 Other specified postprocedural states | CPT/HCPCS: 99212 ==